=== PATIENT | male | born 1995 | race Caucasian/White ===

== ENCOUNTER 2017-05-15 18:56 | Emergency (ER) | payer OTHER ==
[2017-05-15] VITALS (10 sets, daily range): BP systolic 119–136; BP diastolic 61–80
[~2017-05-15] VITALS: Ht 185.4 cm; Wt 81.6 kg
[2017-05-15] MEDS ORDERED: Morphine Sulfate 4mg/ml Inj IVP ONE ×2 (19:00→21:00)
[2017-05-15] MEDS ORDERED: Ketorolac 30mg Inj IV ONE (19:00)
[2017-05-15] MEDS ORDERED: Propofol 200mg/20ml IV ONE ×2 (19:50→22:15)
[2017-05-15] MEDS ORDERED: Sodium Chloride 500ML 500 ML IVPB ONE (20:00)
[2017-05-15] MEDS ORDERED: NORCO 5-325 TA1 EACH ORAL (21:43)
[2017-05-15] MEDS ORDERED: IBUPROFEN600 MG ORAL (21:43)
--- NOTE | 2017-05-15 22:51 | Emergency Room Report ---
History of Present Illness General Chief Complaint: Multiple Trauma/Fall Source: Patient Present Illness HPI 22-year-old male presents to ED with right ankle pain and deformity. Patient fell from skateboard. Brought in by EMS. Denies any other injuries. Patient notes pain and deformity to right ankle. 10 out of 10, throbbing, nonradiating. Unable to bear weight. No other aggravating or leading factors. Denies any other associated symptoms Allergies: Coded Allergies: No Known Allergies (Unverified , 05/15/17) Patient History Past Medical History: none Past Surgical History: none Pertinent Family History: none Social History: Denies: smoking, alcohol use, drug use Immunizations: UTD Reviewed Nursing Documentation: PMH: Agreed, PSxH: Agreed Nursing Documentation-PMH Past Medical History: No Stated History Review of Systems All Other Systems: negative except mentioned in HPI Physical Exam Vital Signs Date Time Temp Pulse Resp B/P (MAP) Pulse Ox O2 Delivery O2 Flow Rate FiO2 05/15/17 18:54 97.9 52 16 127/80 100 Room Air 05/15/17 20:05 2.0 Sp02 EP Interpretation: reviewed, normal General Appearance: no apparent distress, alert, GCS 15, non-toxic Head: normocephalic, atraumatic Eyes: bilateral eye normal inspection, bilateral eye PERRL ENT: hearing grossly normal, normal pharynx, no angioedema, normal voice Neck: full range of motion, supple/symm/no masses Respiratory: chest non-tender, lungs clear, normal breath sounds, speaking full sentences Cardiovascular #1: regular rate, rhythm, no edema Cardiovascular #2: 2+ carotid (R), 2+ carotid (L), 2+ radial (R), 2+ radial (L) , 2+ dorsalis pedis (R), 2+ dorsalis pedis (L) Gastrointestinal: normal bowel sounds, non tender, soft, non-distended, no guarding, no rebound Rectal: deferred Genitourinary: normal inspection, no CVA tenderness Musculoskeletal: back normal, tender - deformity/swelling to R ankle. distal pulses intact Neurologic: alert, oriented x3, responsive, motor strength/tone normal, sensory intact, speech normal Psychiatric: judgement/insight normal, memory normal, mood/affect normal, no suicidal/homicidal ideation Reflexes: 3+ bicep (R), 3+ bicep (L), 3+ tricep (R), 3+ tricep (L), 3+ knee (R) , 3+ knee (L) Skin: normal color, no rash, warm/dry, well hydrated Lymphatic: no adenopathy Procedures Splinting Splinting : Consent: Verbal Splint: poserior short Pre-Proc Neuro Vasc Exam: normal Post-Proc Neuro Vasc Exam: normal Patient Tolerated: Well Complications: None Joint Reduction Joint Reduction : Consent: Written Joint Reduction Site: other - R ankle Procedural Sedation: Yes Reduction Attempts: One Pre-Procedure NV Exam: Yes Post-Procedure NV Exam: Yes Post Joint Reduction Film: joint reduced Patient Tolerated: Well Complications: None Procedural Sedation Consent: Written Pre-Sedation Assessment: Eval. Immed. Prior to Sed, Pre-proc Edu. done, Plan for Sedation Discuss Airway Assessment (Malampati): I Heart: normal Lungs: normal Abdomen: normal Extremities: normal Procedures/Plans: Closed Reduction Plan for Moderate Sedation: Propofol - 100mg total ASA Score: I Procedure Narrative 2009 - 40mg propofol given 2011 - 30mg propofol given 2012 - 30mg propofol given Start Time: 20:10 End Time: 20:14 Total Time: 3 Communication: No Apparent Limitation Mental Status: Awake Respiration: Unlabored Skin Condition: WNL Abdomen: WNL Nausea: NO Vomiting: NO Medical Decision Making Diagnostic Impression: Primary Impression: Trimalleolar fracture Qualified Codes: S82.851A - Displaced trimalleolar fracture of right lower leg , initial encounter for closed fracture Additional Impression: Fall Qualified Codes: W19.XXXA - Unspecified fall, initial encounter ER Course Hospital Course 22-year-old M presents to ED complaining of R ankle pain s/p fall from skateboard Differential diagnoses include: Fracture, dislocation, sprain, contusion Clinical course Patient placed on stretcher. After initial history and physical, I ordered pain medications and Xrays of R foot/ankle X-ray show trimal fracture w/ dislocation. Full pulses intact Using procedural sedation ankle is reduced. posterior splint is applied. Repeat x-rays show improved alignment and reduction Discussed case with Orthopedics Dr Miles; he agrees that patient can be discharged pending prompt outpatient followup for surgery as outpatient I did give patient the option for admission; he prefers to be discharged and will followup as outpatient with orthopedics Patient placed in posterior splint and given crutches Diagnosis - trimalleolar fx, fall Stable and discharged to home with prescription for Motrin, [place]. apply ice, keep elevated. weight bear as tolerated. Followup with Orthopedics. Return to ED if symptoms recur or worsen Other X-Ray Diagnostic Results Other X-Ray Diagnostic Results #1: X-Ray ordered: R ankle # of Views/Limited Vs Complete: 3 View Indication: Pain EP Interpretation: Yes Interpretation: no soft tissue swelling, other - trimal fx dislocation Impression: Other - trimalfx Electronically Signed by: Electronically signed by Jaleel Yap MD Other X-Ray Diagnostic Results #2: X-Ray ordered: R foot # of Views/Limited Vs Complete: 3 View Indication: Pain EP Interpretation: Yes Interpretation: other - trimal fx with dislocatin Impression: Other - trimal fx with dislocation Electronically Signed by: Electronically signed by Jaleel Yap MD Last Vital Signs Date Time Temp Pulse Resp B/P (MAP) Pulse Ox O2 Delivery O2 Flow Rate FiO2 05/15/17 22:43 18 05/15/17 21:54 98.6 88 100 Nasal Cannula 2.0 55 100 59 100 65 99 69 05/15/17 20:29 129/68 Status: improved Disposition: HOME, SELF-CARE Condition: Stable Scripts Hydrocodone Bit/Acetaminophen 5-325* (NORCO 5-325*) 1 Each Tablet 1 TAB ORAL Q6H Y for For Pain, #20 TAB 0 Refills Prov: JALEEL YAP M.D. 05/15/17 Ibuprofen* (MOTRIN*) 600 Mg Tablet 600 MG ORAL Q8H Y for For Pain, #30 TAB 0 Refills Prov: JALEEL YAP M.D. 05/15/17 Referrals: ELANA MILES Patient Instructions: Ankle Fracture, [id number] JALEEL YAP M.D. May 15, 2017 22:51
--- NOTE | 2017-05-16 11:04 | Diagnostic Imaging Report ---
Indication: Pain right ankle Comparison: 19:32 Findings: 3 views of the right ankle obtained at 20:22. A trimalleolar fracture has been reduced and alignment is much improved compared to the film obtained earlier. Impression: Alignment is anatomic post reduction.
--- NOTE | 2017-05-16 11:06 | Diagnostic Imaging Report ---
Indication: Pain Comparison: None Findings: 3 views of the right foot were obtained. There is a severe fracture dislocation of the right ankle with posterior displacement of the talus with respect to the distal tibia. Fractures of the posterior malleolus, lateral malleolus and medial malleoli are noted. No additional fractures are identified within the foot. Impression: Acute fracture dislocation of the ankle
--- NOTE | 2017-05-16 11:06 | Diagnostic Imaging Report ---
Indication: Right ankle pain Comparison: None Findings: 2 views of the right ankle obtained. There is a severe fracture dislocation of the right ankle with posterior displacement of the talus with respect to the distal tibia. Fractures of the posterior malleolus, lateral malleolus and medial malleoli are noted. Impression: Acute fracture dislocation of the ankle
== END 2017-05-15 22:15 | disposition home or self-care (01) ==
LOC: EDBD 18:56 → EMR 21:30
DX: S82.851A Displaced trimalleolar fracture of right lower leg, initial encounter for closed fracture (principal); V00.131A Fall from skateboard, initial encounter; Y93.51 Activity, roller skating (inline) and skateboarding; Y92.89 Other specified places as the place of occurrence of the external cause
CPT/HCPCS: 27818; 73600; 73610; 73630; 96361; 96374; 96375; 96376; 99284; J1885; J2270; J2704; J7040